=== PATIENT | female | born 1945 | race Hispanic/Latino ===

== ENCOUNTER 2025-01-15 13:41 | Observation (INO) | payer OTHER ==
[~2025-01-15] VITALS: Ht 152.4 cm; Wt 56.4 kg
[~2025-01-15 13:41] MED LIST: AEC81 PO; ATOR20TA65 PO; CLOP-31 PO; FAMO20TA8 PO; FERR324T4 PO; FURO20TA6 PO; GABA-529 PO; LEVO2.5S4 PO; LEVO88CA5 PO; METF-444 PO; METO25TA3 PO; SPIR25TA6 PO
--- NOTE | 2025-01-15 14:45 | ERN ---
General Chief Complaint: Fatigue Stated Complaint: FEELS BAD Time Seen by MD: 13:43 Source: patient History of Present Illness Initial Comments Patient is a an 79-year-old female coming in with multiple complaints. Per family member patient has had history of depression patient had open heart surgery October. Since then patient has had on and off all discomfort. Allergies: Coded Allergies: No Known Drug Allergies (Unverified Allergy, Unknown, 06/06/24) Home Meds Active Scripts Spironolactone (Spironolactone) 25 Mg Tablet, 25 MG PO DAILY, #30 TAB 2 Refills Prov:JOSE BREWER 10/24/24 Metoprolol Succinate (Toprol Xl) 25 Mg Tab.er.24h, 25 MG PO DAILY, #30 TAB 2 Refills Prov:JOSE BREWER 10/24/24 Furosemide (Lasix 20Mg Tab) 20 Mg Tablet, 20 MG PO DAILY, #30 TAB 2 Refills Prov:JOSE BREWER 10/24/24 Ferrous Sulfate (Ferrous Sulfate) 324 Mg (65 Mg Iron) Tablet.dr, 325 MG PO BID, #60 TAB 1 Refill Prov:JOSE BREWER 10/24/24 Clopidogrel Bisulfate (Plavix) 75 Mg Tablet, 75 MG PO DAILY, #30 TAB 2 Refills Prov:JOSE BREWER 10/24/24 Atorvastatin Calcium (Atorvastatin Calcium) 20 Mg Tablet, 20 MG PO HS, #30 TAB 0 Refills Prov:JOSE BREWER 10/24/24 Aspirin (ASPIRIN 81 MG ECTAB) 81 Mg Ectab, 81 MG PO DAILY, #30 TAB.EC 2 Refills Prov:JOSE BREWER 10/24/24 Reported Medications Levocetirizine Dihydrochloride (Levocetirizine Dihydrochloride) 2.5 Mg/5 Ml Solution, 5 ML PO HS for 30 Days, #120 ML 0 Refills 10/13/24 Famotidine (Famotidine) 20 Mg Tablet, 20 MG PO DAILY, TAB 10/13/24 Gabapentin (Gabapentin) 100 Mg Capsule, 300 MG PO TID, CAP 06/06/24 Metformin HCl (Metformin HCl) 500 Mg Tablet, 1000 MG PO BID, TAB 06/06/24 Levothyroxine Sodium (Levothyroxine) 88 Mcg Capsule, 1 CAP PO DAILY for 30 Days, #30 CAP 0 Refills 06/06/24 Past Medical History Past Medical History: Anxiety, Diabetes-Type II, High Cholesterol, Heart Disease, Hypertension Past Surgical History: CABG, None Surgical History Other: THYROID, STENTS ROS Dictation CONSTITUTIONAL: No chills, no fever, no weakness, no diaphoresis, malaise. HEAD/FACE: No signs of trauma. EENT: No eye pain, no blurred vision, no tearing, no double vision, no ear rudolph n, no ear discharge, no nose pain, no nasal congestion, no throat pain, no throat swelling, no mouth pain. RESPIRATORY: No cough, no orthopnea, no SOB, no stridor, no wheezing. CARDIOVASCULAR: No chest pain, no edema, no palpitations, no syncope. GASTROINTESTINAL/ABDOMINAL: No abdominal pain, no constipation, no diarrhea, no nausea, no vomiting. GENITOURINARY: No abnormal discharge, no dysuria, no frequent urination, no hematuria. No complaints of pain in the genitals. MUSCULOSKELETAL: No back pain, no gout, no joint pain, no joint swelling, no muscle pain, no muscle stiffness, no neck pain. INTEGUMENTARY: No change in color, no change in hair/nails, no dryness, no lesion, no lumps, no rash. NEUROLOGICAL/PSYCH: No anxiety, not depressed, no emotional problem, no headache, no numbness, no pre-existing deficit, no history of seizures, no tremors, no weakness. HEMATOLOGIC/LYMPHATIC: Not anemic, no history of blood clots, no apparent bleeding, no bruising, glands not swollen. All Systems Negative, Except as Noted. Physical Exam Physical Exam Dictation VITAL SIGNS: Reviewed. GENERAL APPEARANCE: Alert, oriented x3, no acute distress, obese. HEAD AND FACE: Non-traumatic. EYES: PERRL, pink conjunctivas, eyelid no trauma, anterior chamber clear. EARS: Pinnas intact and no signs of trauma or erythema. Ear canals clear and no discharge. TMs no erythema. NOSE: No discharge, no bleeding. OROPHARYNX: Mouth normal, teeth no caries, tongue pink. Pharynx clear, no erythema. Tonsils no exudates, no abscesses noted. Mucous membrane moist. NECK: Supple, non-tender, no thyromegaly, no masses, no JVD, no bruits. BREAST: Deferred. CHEST: No tenderness, no crepitus, no paradoxical movement, no retractions. LUNGS: Clear, well-ventilated, symmetric, no rales, no wheezing, no rhonchi, no stridor, good breath sounds bilaterally. HEART: Regular rate, regular rhythm, no murmur, no gallops. VASCULAR: No peripheral edema. ABDOMEN: Soft, positive bowel sounds, nondistended, no guarding, nontender, no rebound, no masses no hepatomegaly, no splenomegaly, no Armstrong's sign, no hernias. RECTAL: Deferred. GENITAL: Deferred. NEUROLOGICAL: Normal speech, gross motor function intact, gross sensory function intact. MUSCULOSKELETAL: Neck nontender, full range of motion, back nontender, full range of motion. EXTREMITIES: Nontender, full range of motion. SKIN: Color pink, dry, no turgor, no rash, no lacerations, no abrasions, no contusions. LYMPHATICS: Deferred. Results Laboratory and Microbiology Lab and Micro Result Laboratory Tests Test 01/15/25 14:56 01/15/25 15:05 Urine Color LIGHT-YELLOW (YELLOW) Urine Appearance CLEAR (CLEAR) Urine pH 5.0 (5.0-8.0) Urine Specific Harvey 1.013 (1.001-1.031) Urine Protein NEGATIVE mg/dL (NEGATIVE) Urine Glucose (UA) NEGATIVE mg/dL (NEGATIVE) Urine Ketones NEGATIVE mg/dL (NEGATIVE) Urine Occult Blood NEGATIVE (NEGATIVE) Urine Nitrate NEGATIVE (NEGATIVE) Urine Bilirubin NEGATIVE mg/dL (NEGATIVE) Urine Urobilinogen 0.2 mg/dL (0.2-1.0) Urine Leukocyte Esterase NEGATIVE Zay/uL White Blood Count 8.9 K/uL (4.8-10.8) Red Blood Count 3.53 MIL/uL (4.00-5.50) L Hemoglobin 10.7 g/dL (12.0-16.0) L Hematocrit 32.2 % (36-48) L Mean Corpuscular Volume 91.2 fL (79-99) Mean Corpuscular Hemoglobin 30.3 pg (27.0-33.0) Mean Corpuscular Hemoglobin Concent 33.2 g/dL (32.0-36.0) Red Cell Distribution Width 14.3 % (11.0-15.5) Platelet Count 295 K/uL (130-400) Mean Platelet Volume 10.1 fL (7.5-10.5) Immature Granulocyte % (Auto) 0.3 % (0-1) Neutrophils (%) (Auto) 62.7 % (40.0-77.0) Lymphocytes (%) (Auto) 29.8 % (21.0-51.0) Monocytes (%) (Auto) 5.4 % (3.0-13.0) Eosinophils (%) (Auto) 1.2 % (0.0-8.0) Basophils (%) (Auto) 0.6 % (0.0-5.0) Neutrophils # (Auto) 5.6 K/uL (1.8-7.7) Lymphocytes # (Auto) 2.7 K/uL (1.0-4.8) Monocytes # (Auto) 0.5 K/uL (0.1-1.0) Eosinophils # (Auto) 0.11 K/uL (0.00-0.70) Basophils # (Auto) 0.05 K/uL (0.00-0.20) Absolute Immature Granulocyte (auto 0.03 K/uL (0-1) Nucleated Red Blood Cells 0.0 % (0.0-0.19) Sodium Level 137 mmol/L (136-145) Potassium Level 4.4 mmol/L (3.5-5.1) Chloride Level 100 mmol/L (101-111) L Carbon Dioxide Level 24 mmol/L (21-32) Blood Urea Nitrogen 22 mg/dL (7-18) H Creatinine 1.0 mg/dL (0.5-1.0) Glomerular Filtration Rate Calc 57 mL/min (>90) Random Glucose 123 mg/dL (70-105) H Total Calcium 9.0 mg/dL (8.5-10.1) Magnesium Level 0.70 mg/dL (1.80-2.40) *L Total Creatine Kinase 109 U/L (21-232) # Troponin I High Sensitivity 39 ng/L (4-50) B-Type Natriuretic Peptide 326 pg/mL (0-100) H Labs Reviewed?: Yes EKG/XRAY/US/CT/MRI EKG Comment 01/15/2025 time 2:50 p.m. Ventricular rate 77 Sinus rhythm [place] [address] wave elevation or depression X-RAY Comment [facility] [address] [place] [address] IMAGING REPORT Signed PATIENT: BUNNY NEWTON MR#: [id number] : 1945 SEX: F AGE: 79 LOCATION: [facility] ORDER STATUS: REG ER REPORT#: [id number] SERVICE REASON: weaKNESS ORDERING PHYSICIAN: MILLER BARRETO MD PROCEDURE: CXR1VW - CHEST 1VW CHEST 1VW HISTORY: Weakness COMPARISON: 10/22/2024 FINDINGS: A frontal projection of the chest was obtained. Prominent interstitial markings are seen with possible right lower lung infiltrates. Poststernotomy changes are seen. The heart is enlarged. Degenerative changes of the thoracolumbar spine are present. Aortic calcifications are seen. IMPRESSION: 1. Prominent interstitial markings are seen with possible right lower lung infiltrates. DICTATED BY: FRANCIS FARIA MD DATE: 01/15/25 150 ELECTRONICALLY SIGNED BY: FRANCIS FARIA MD DATE: 01/15/25 150 [facility] MDM: Differential diagnosis: Right lung infiltrate, shortness of breath, chest discomfort, hypomagnesemia, Rationale: Tests considered and ordered secondary to shared decision making include: labs, ECG and radiology Previous outside records reviewed: Old ER visits. Risk of complication and/or morbidity or mortality of patient management: None Medications-Per medication reconciliation Need for hospitalization: Patient does meet criteria for hospitalization. Need for emergency major/minor surgery: No There are no social concerns with this patient. Prescription drug management Prescriptions will include symptomatic care Patient's prior external medical records from other ER visits were reviewed by me as indicated. Prior testing and results from previous visits were reviewed. Prior tests were taken into account with medical decision making and resource utilization, independent historian/historians were used to obtain complete medical history. I independently interpreted the test that were performed, results were reviewed by me and considered findings on radiology if ordered. Medical management and examination interpretation discussions were had by me with other qualified healthcare professionals as indicated for the patient's care. Patient is a 79-year-old female coming in to be evaluated for chest discomfort. Patient has a history of open heart surgery two months ago. Chest x-ray disclose a mild right lung infiltrates suggestive of a pneumonia. Patient will be admitted under the care of [facility] for ongoing management. ED Course Orders Procedure Category Date Status Time Cbc With Differential LAB 01/15/25 Complete 14:17 B-Type Natriuretic LAB 01/15/25 Complete Peptide 14:17 Chest 1vw RAD 01/15/25 Resulted 14:17 12 Lead Ekg Tracing- EKG 01/15/25 Complete Technical 14:17 Magnesium LAB 01/15/25 Complete 14:17 Creatine Kinase, Total LAB 01/15/25 Complete 14:17 Troponin I High LAB 01/15/25 Complete Sensitivity 14:17 Urinalysis Profile LAB 01/15/25 Complete 14:17 Basic Metabolic Panel LAB 01/15/25 Complete 14:17 Magnesium 2gm Premix PHA 01/15/25 In Process 50ml (Magnesium 2gm 16:00 Ceftriaxone 1g Vial PHA 01/15/25 In Process (Rocephine 1g Inj) 16:00 Ipratropium/Albuterol PHA 01/15/25 In Process Neb (Duoneb) 16:00 Current Medications Medications (Trade) Dose Ordered Sig/Jordyn Route PRN Reason Start Time Stop Time Status Last Admin Dose Admin Albuterol (DUOneb) 2 udvial ONCE IH 01/15/25 16:00 01/15/25 20:00 Ceftriaxone Sodium (ROCEphine 1G INJ) 1 gm ONCE IVPB 01/15/25 16:00 01/15/25 20:00 01/15/25 15:58 Magnesium Sulfate 50 ml @ 0 mls/hr PROTOCOL IV 01/15/25 16:00 02/14/25 15:59 01/15/25 15:54 Vital Signs Date Time Temp Pulse Resp B/P (MAP) Pulse Ox O2 Delivery O2 Flow Rate FiO2 01/15/25 15:18 98.2 71 18 127/41 100 Room Air* 0 21 01/15/25 13:59 98.2 88 18 132/44 99 Room Air* 0 21 01/15/25 13:46 98.4 87 16 158/55 100 Room Air 0 DX & DISP Disposition: Inpatient Decision to Admit Time: 16:11 Departure Impression: Primary Impression: Right pulmonary infiltrate on CXR Additional Impressions: Hypomagnesemia, Shortness of breath, Acute CHF Condition: Stable Referrals: SYLVIA GALLO (PCP) MILLER BARRETO MD Jan 15, 2025 14:45
--- NOTE | 2025-01-15 14:53 | EKG ---
[facility] Test Date: 2025-01-15 Test Time: 14:50:51 Pat Name: BUNNY NEWTON Department: ED Room: 405 Gender: F Clinical Rn: [id number] : 1945 Requested By: MILLER BARRETO Order Number: [id number] Reading MD: Antonio Roldan Measurements Intervals [place] Rate: 77 P: 59 MI: 121 QRS: 34 QRSD: 90 T: -69 QT: 375 QTc: 424 Interpretive Statements Sinus rhythm Abnormal T, consider ischemia, diffuse leads Compared to ECG 10/16/2024 16:18:56 T-wave abnormality now present Possible ischemia now present Myocardial infarct finding no longer present Electronically Signed On 01-17-2025 10:20:05 CDT by Antonio Roldan Please click the below link to view image of tracing.
[2025-01-15 15:05] LABS: APPEARANCE,URINE CLEAR (CLEAR); BILIRUBIN,URINE NEGATIVE (NEGATIVE); COLOR,URINE LIGHT-YELLOW (YELLOW); GLUCOSE, URINE (UA) NEGATIVE (NEGATIVE); KETONES,URINE NEGATIVE (NEGATIVE); LEUKOCYTE ESTERASE ,URINE NEGATIVE Leu/uL (NEGATIVE); NITRATE,URINE NEGATIVE (NEGATIVE); OCCULT BLOOD,URINE NEGATIVE (NEGATIVE); PROTEIN,URINE NEGATIVE (NEGATIVE); UROBILINOGEN,URINE 0.2 mg/dL (0.2-1.0)
[2025-01-15 15:08] LABS: ADD UA MICROSCOPIC NO
--- NOTE | 2025-01-15 15:08 | HMCIMG ---
CHEST 1VW HISTORY: Weakness COMPARISON: 10/22/2024 FINDINGS: A frontal projection of the chest was obtained. Prominent interstitial markings are seen with possible right lower lung infiltrates. Poststernotomy changes are seen. The heart is enlarged. Degenerative changes of the thoracolumbar spine are present. Aortic calcifications are seen. IMPRESSION: 1. Prominent interstitial markings are seen with possible right lower lung infiltrates.
[2025-01-15 15:16] LABS: BASOPHILS # (AUTO) 0.05 K/uL (0.00-0.20); BASOPHILS % (AUTO) 0.6 % (0.0-5.0); EOSINOPHILS # (AUTO) 0.11 K/uL (0.00-0.70); EOSINOPHILS % (AUTO) 1.2 % (0.0-8.0); HEMATOCRIT 32.2 % (36-48); IMMATURE GRANULOCYTE ABSOLUTE 0.03 K/uL (0-1); LYMPHOCYTES # (AUTO) 2.7 K/uL (1.0-4.8); LYMPHOCYTES % (AUTO) 29.8 % (21.0-51.0); MEAN CORPUSCULAR HEMOGLOBIN 30.3 pg (27.0-33.0); MEAN CORPUSCULAR HGB CONC 33.2 g/dL (32.0-36.0); MEAN CORPUSCULAR VOLUME 91.2 fL (79-99); MONOCYTES # (AUTO) 0.5 K/uL (0.1-1.0); MONOCYTES % (AUTO) 5.4 % (3.0-13.0); NEUTROPHILS # (AUTO) 5.6 K/uL (1.8-7.7); NEUTROPHILS % (AUTO) 62.7 % (40.0-77.0); PLATELET COUNT (AUTO) 295 K/uL (130-400); RED BLOOD CELL COUNT(AUTO) 3.53 MIL/uL (4.00-5.50); RED CELL DISTRIBUTION WIDTH 14.3 % (11.0-15.5); WHITE BLOOD COUNT (AUTO) 8.9 K/uL (4.8-10.8)
[2025-01-15 15:30] LABS: POTASSIUM 4.4 mmol/L (3.5-5.1)
[2025-01-15 15:35] LABS: B-TYPE NATRIURETIC PEPTIDE 326 pg/mL (0-100)
[2025-01-15 15:48] LABS: MAGNESIUM 0.7 mg/dL (1.80-2.40)
--- NOTE | 2025-01-15 15:50 | NUR ---
MAGNESIUM 0.7, NOTIFIED DR. BARRETO, ORDERED MAGNESIUM 2 GRAMS IVPB
[2025-01-15] MEDS: MAGNESIUM 2GM PREMIX 50ML 50 ML IV SCH (15:54)
[2025-01-15] MEDS: cefTRIAXone 1G VIAL IVPB SCH (15:58)
[2025-01-15] MEDS ORDERED: ondanSETRON 4MG INJ IVP PRN (16:30)
[2025-01-15] MEDS: IpraTROPium/alBUTERol SULFATE 3 ML SOLUTION IH SCH (16:49)
[2025-01-15 16:52] VITALS: PULSE 77; RESP 18
[2025-01-15 16:55] LABS: HEMOGLOBIN A1C 8.4 % (4.0-6.0)
[2025-01-15 16:58] VITALS: PULSE 80; RESP 18; O2SAT 99
[2025-01-15] MEDS: IpraTROPium 0.5 MG/2.5 ML INH IH SCH (18:29)
[2025-01-15 18:30] VITALS: PULSE 102; RESP 20
[2025-01-15 18:31] VITALS: PULSE 102; RESP 20; O2SAT 98
--- NOTE | 2025-01-15 19:34 | NUR ---
Orders Patient c/o headache. Tylenol orders given by Megan Melendez.
[2025-01-15] MEDS: acetaMINOPHEN 325 MG TAB PO PRN (19:51)
[2025-01-15 22:12] LABS: INFLUENZA TYPE A Negative For Type A (NEGATIVE); INFLUENZA TYPE B Negative For Type B (NEGATIVE)
[2025-01-16] VITALS (7 sets, daily range): BP systolic 101–149; BP diastolic 42–59; PULSE 71–94; RESP 17–20; TEMP 98.2–98.6; O2SAT 98–99
[2025-01-16] MEDS: HEParin 5,000 UNIT VIAL SQ SCH (00:08)
[2025-01-16] MEDS ORDERED: PANT40TA54 PO (00:55)
[2025-01-16] MEDS ORDERED: ATOR40TA71 PO (00:55)
[2025-01-16] MEDS ORDERED: LISI20TA24 PO (00:55)
[2025-01-16 04:46] LABS: BASOPHILS # (AUTO) 0.04 K/uL (0.00-0.20); BASOPHILS % (AUTO) 0.6 % (0.0-5.0); EOSINOPHILS % (AUTO) 1.6 % (0.0-8.0); HEMATOCRIT 27.8 % (36-48); IMMATURE GRANULOCYTE ABSOLUTE 0.03 K/uL (0-1); LYMPHOCYTES % (AUTO) 32.6 % (21.0-51.0); MEAN CORPUSCULAR HEMOGLOBIN 29.6 pg (27.0-33.0); MEAN CORPUSCULAR HGB CONC 31.7 g/dL (32.0-36.0); MEAN CORPUSCULAR VOLUME 93.6 fL (79-99); MONOCYTES # (AUTO) 0.4 K/uL (0.1-1.0); MONOCYTES % (AUTO) 6.9 % (3.0-13.0); NEUTROPHILS # (AUTO) 3.6 K/uL (1.8-7.7); NEUTROPHILS % (AUTO) 57.8 % (40.0-77.0); PLATELET COUNT (AUTO) 242 K/uL (130-400); RED BLOOD CELL COUNT(AUTO) 2.97 MIL/uL (4.00-5.50); RED CELL DISTRIBUTION WIDTH 14.4 % (11.0-15.5); WHITE BLOOD COUNT (AUTO) 6.3 K/uL (4.8-10.8)
[2025-01-16 04:53] LABS: CREATININE 0.9 mg/dL (0.5-1.0)
[2025-01-16 04:57] LABS: ALBUMIN 3.2 g/dL (3.5-5.0); BILIRUBIN,TOTAL 0.3 mg/dL (0.2-1.0); MAGNESIUM 1.8 mg/dL (1.80-2.40); TOTAL PROTEIN, SERUM 6.1 g/dL (6.0-8.3)
[2025-01-16] MEDS: cefTRIAXone 2GM VIAL ONE (08:11)
[2025-01-16] MEDS: cefTRIAXone 2GM VIAL IVPB SCH (09:27)
--- NOTE | 2025-01-16 11:12 | NUR ---
DCP: HOME Pt currently lives with january Shafer [phone]. Pt has a walker that she uses to ambulate. Pt does not have any home health or provider services at this time. PCP is Dr. Thony Hernández and uses [facility] for any RX needs. At [place] pt will go home and family can assist with transportation. Addendum: 01/16/25 at 1114 by MAYANK CABA SS Amended: Links added.
--- NOTE | 2025-01-16 12:17 | HMCIMG ---
CHEST 1VW HISTORY: Follow-up COMPARISON: 01/15/2025 FINDINGS: A frontal projection of the chest was obtained. No acute pulmonary infiltrates is seen. Poststernotomy changes are seen. The heart is enlarged. Degenerative changes of the thoracolumbar spine are present. Nodular density is seen in the right lower lung not seen on previous study. Short-term follow-up would be helpful. No evidence of aortic calcification is seen. IMPRESSION: 1. No acute pulmonary infiltrate is seen. Nodular density in the right lower lung not seen on previous study
--- NOTE | 2025-01-16 12:17 | NUR ---
[facility] NOTIFIED JERRI ARROYO THAT THEY ARE IN AND TO REVIEW HOME MEDS.
[2025-01-16] MEDS ORDERED: AMOX-426 PO (14:43)
--- NOTE | 2025-01-16 14:43 | DS ---
[facility] DISCHARGE SUMMARY Date Patient Seen: Jan 16, 2025 Time of Visit: 14:43 Supervising Physician: Dr. Stefan Clemente Primary Care Physician: Dr. Thony Hernández Outpatient Specialists: [ ] Inpatient Consults: [ ] HOSPITAL COURSE: HPI (per admitting provider) Unavailable The patient was treated for the following problems: This patient was admitted for general discomfort, depression, associated with a CABG the patient had an October. Per her report since the surgery she just has not felt right. Patient was found to have pneumonia on this admission and was treated for such, upon evaluation prior to discharge patient is doing well, she denies any discomfort, she has responded to antibiotic treatment and remains on room air at this time. Patient was advised to follow with her PCP after discha rge, prescription was sent to pharmacy to include Augmentin for seven days to complete antibiotic treatment. Patient also advised to follow up with cardio ACTIVE PROBLEM LIST FOR THE HOSPITALIZATION: General discomfort following recent CABG CABG October of this year Community-acquired Pneumonia CHRONIC PROBLEMS: continue previous management per PCP unless otherwise indicated Anxiety Diabetes-Type II High Cholesterol Heart Disease Hypertension [employer]ISTANT FINDINGS/RECOMMENDATIONS: PROCEDURES: as mentioned above DISCHARGE MEDICATIONS: Pt hemodynamically stable and afebrile at time of discharge. PCP notified of patients admission, hospital course and discharge. PHYSICAL EXAM: GENERAL: alert, weak, awake oriented x 3 HEENT: EOMI, Sclera non icteric, moist mucosa NECK: Supple, no JVD, trachea midline LUNGS: Clear breath sounds bilaterally. No wheezes HEART: Regular rate and rhythm. Normal S1 and S2, without murmurs ABD: Abdomen soft, nontender. Bowel sounds present EXT: No clubbing cyanosis or edema NEURO: Alert and oriented to person, follows commands FOLLOW-UP: Follow-up with PCP in 2-3 days RECOMMENDATIONS: See Discharge Instructions This case was seen and discussed with my supervising physician. More than 30 minutes spent on discharge process, including evaluation of the patient, discussion with nursing staff, medication reconciliation and follow-up appointments JERRI ANG Jan 16, 2025 14:43
--- NOTE | 2025-01-16 17:12 | NUR ---
DISCHARGE PT DISCHARGED VIA WHEELCHAIR DOWNSTAIRS
== END 2025-01-16 17:15 | disposition home or self-care (01) ==
LOC: EDH 13:41 → EDHIP 13:42 → 4BH 01-16 00:06
PROVIDERS: ADMIT Internal Medicine Critical Care Medicine; ATTEND Internal Medicine Critical Care Medicine
DX: J18.9 Pneumonia, unspecified organism (principal); I11.0 Hypertensive heart disease with heart failure; I50.9 Heart failure, unspecified; R91.8 Other nonspecific abnormal finding of lung field; E83.42 Hypomagnesemia; F32.A Depression, unspecified; E11.9 Type 2 diabetes mellitus without complications; E78.00 Pure hypercholesterolemia, unspecified; F41.9 Anxiety disorder, unspecified; R53.1 Weakness; Z98.890 Other specified postprocedural states; Z79.899 Other long term (current) drug therapy; Z95.1 Presence of aortocoronary bypass graft
CPT/HCPCS: 96365; 96366 ×4; 96368; 99285; 83036; 82550; 83735 ×3; 84484; 80048; 83880; 85025 ×2; 87804 ×2; 81003; 36415 ×2; 71045 ×2; 93005; 84145; 96372; 80053; 82948 ×3; 94640; G0378 ×25; J3475 ×2; J0696 ×2; J1644 ×2; 94664